=== PATIENT | female | born 1980 | race Caucasian/White ===

== ENCOUNTER 2022-03-07 14:59 | Outpatient (CLI) | payer MEDICAID, SELFPAY ==
[2022-03-07 18:03] LABS: Hepatitis B Surface Antigen* Negative (Negative); Hepatitis C Virus Antibody* Negative (Negative)
[2022-03-08 10:33] LABS: Amphetamine Screen Urine Negative (Negative); Barbiturate Screen Urine Negative (Negative); Benzodiazepines Screen Urine Negative (Negative); Cannabinoid Screen Urine Negative (Negative); Cocaine Screen Urine Negative (Negative); Methadone Screen Urine Negative (Negative); Methamphetamines Screen Urine Negative (Negative); Opiate Screen Urine Negative (Negative); Oxycodone Screen Urine Negative (Negative); Phencyclidine Screen Urine Negative (Negative); Tricyclic Antidepressant Urine Negative (Negative)
[2022-03-08 14:41] LABS: HIV 1/2/P24 Combo Screen* Negative (Negative)
[2022-03-09 13:53] LABS: Rapid Plasma Reagin (RPR) Non Reactive (Non Reactive)
[2022-03-10 02:34] LABS: Rubella Antibody IgG 29.9 IU/mL
== END 2022-03-07 15:00 | disposition home or self-care (01) ==
PROVIDERS: Visit Provider Advanced Practice Midwife
DX: Z34.81 Encounter for supervision of other normal pregnancy, first trimester (principal); Z3A.10 10 weeks gestation of pregnancy
CPT/HCPCS: 76817; 80306; 86592; 86703; 86762; 86787; 86803; 86850; 86900; 86901; 87086; 87340

== ENCOUNTER 2022-04-23 10:23 | Outpatient (CLI) | payer MEDICAID, SELFPAY ==
[2022-04-23 11:52] LABS: Amphetamine Screen Urine Negative (Negative); Barbiturate Screen Urine Negative (Negative); Benzodiazepines Screen Urine Negative (Negative); Cannabinoid Screen Urine Negative (Negative); Cocaine Screen Urine Negative (Negative); Methadone Screen Urine Negative (Negative); Methamphetamines Screen Urine Negative (Negative); Opiate Screen Urine Negative (Negative); Oxycodone Screen Urine Negative (Negative); Phencyclidine Screen Urine Negative (Negative); Tricyclic Antidepressant Urine Negative (Negative)
[2022-04-25 08:04] LABS: Dating Ultrasound; Family Hx Neural Tube Defect No; Insulin Req Maternal Diabetes No; Maternal Age At Delivery 40.3 yr; Maternal Race Nonblack; Maternal Screen Interpretation Screen Neg; MoM for AFP 0.84; Number of Fetuses Singleton; Patient's AFP 30 ng/mL; Smoking No
== END 2022-04-23 10:24 | disposition home or self-care (01) ==
LOC: NFLDREF 10:28
PROVIDERS: Advanced Practice Midwife; Visit Provider Advanced Practice Midwife
DX: O09.522 Supervision of elderly multigravida, second trimester (principal); F12.90 Cannabis use, unspecified, uncomplicated; Z3A.16 16 weeks gestation of pregnancy
CPT/HCPCS: 80306; 81420; 81511

== ENCOUNTER 2022-06-06 12:33 | Outpatient (CLI) | payer MEDICAID, SELFPAY | END 2022-06-06 12:34 | disposition home or self-care (01) | LOC: US 12:35 | PROVIDERS: Visit Provider Pediatrics Neonatal-Perinatal Medicine | DX: O09.522 Supervision of elderly multigravida, second trimester (principal); Z3A.22 22 weeks gestation of pregnancy | CPT/HCPCS: 76811 ==

== ENCOUNTER 2022-07-18 11:24 | Outpatient (CLI) | payer MEDICAID, SELFPAY | END 2022-07-18 11:25 | disposition home or self-care (01) | LOC: NFLDREF 11:27 | PROVIDERS: Visit Provider Advanced Practice Midwife | DX: O09.523 Supervision of elderly multigravida, third trimester (principal); Z3A.28 28 weeks gestation of pregnancy | CPT/HCPCS: 85461; 86592; 86850; J2791 ==

== ENCOUNTER 2022-08-13 14:04 | Outpatient (CLI) | payer MEDICAID, SELFPAY ==
--- NOTE | 2022-08-13 14:00 | CRLHL7_ITS ---
For Patients: As a result of the Century Cures Act, medical imaging exams and procedure reports are released immediately into your electronic medical record. You may view this report before your referring provider. If you have questions, please contact your health care provider. INDICATION: Advanced maternal age, profile views, check growth. COMPARISON: 06/06/2022. TECHNIQUE: : Transabdominal OB ultrasound was performed. FINDINGS: Cervix: Not visualized. position: Vertex. Amniotic fluid: 4.6 cm SDP. Placenta: Anterior. heart rate: 145 bpm. Biometry: BPD: 8.1 cm, 23 w, 3 d, 61%. HC: 30.4 cm, 33 w, 5 d, 69%. AC: 28.5 cm, 32 w, 4 d, 73%. FL: 5.8 cm, 30 w, 5 d, 14%. FL/AC ratio: 20.6%. HC/AC ratio: 1.06. EFW: 1905 g, 4 lbs, 3 oz. age by this US: 32 w, 3 d. RODNEY by this US: 10/05/2022. Percentile by RODNEY: 52%. The nasal bone is visualized and within normal limits. IMPRESSION: 1. Single live intrauterine gestation at 32 weeks 3 days, RODNEY of 10/05/2022. Estimated weight is 1905 grams which lies at the 52 percentile. 2. Nasal bone/ profile is within normal limits. Dictated by Rachael Carter MD @ 08/13/2022 4:17:25 PM (Electronically Signed)
== END 2022-08-13 14:05 | disposition home or self-care (01) ==
LOC: US 14:05
PROVIDERS: Visit Provider Advanced Practice Midwife
DX: O09.523 Supervision of elderly multigravida, third trimester (principal); Z3A.31 31 weeks gestation of pregnancy
CPT/HCPCS: 76816

== ENCOUNTER 2022-09-13 15:34 | Outpatient (CLI) | payer MEDICAID, SELFPAY ==
[2022-09-14 11:50] LABS: Strep B DNA Probe NEGATIVE (Negative)
[2022-09-14 12:16] LABS: Strep B Pen/Amox Allergy No
== END 2022-09-13 15:35 | disposition home or self-care (01) ==
LOC: NFLDREF 15:34
PROVIDERS: Visit Provider Advanced Practice Midwife
DX: Z34.90 Encounter for supervision of normal pregnancy, unspecified, unspecified trimester (principal)
CPT/HCPCS: 87081; 87653

== ENCOUNTER 2022-09-20 13:49 | Outpatient (CLI) | payer MEDICAID, SELFPAY ==
--- NOTE | 2022-09-20 14:00 | CRLHL7_ITS ---
For Patients: As a result of the Century Cures Act, medical imaging exams and procedure reports are released immediately into your electronic medical record. You may view this report before your referring provider. If you have questions, please contact your health care provider. INDICATION: Measuring small for dates TECHNIQUE: Real time romano scale imaging of the fetus was performed. COMPARISON: 08/13/2022 FINDINGS: Sonographic imaging demonstrates a single living intrauterine gestation. Fetus demonstrates a regular cardiac rate of 133 beats per minute. Fetus has a vertex position. The placenta lies anteriorly. Amniotic fluid volume appears normal and there is a single deepest pocket of 5.5 cm. The estimated weight is 2812gm which lies at the 26th %. On the prior OB ultrasound dated 08/13/2022 the estimated weight was at the 52nd percentile. BPD 65th percentile. HC 30th percentile. AC 47th percentile. FL less than 3rd percentile. The fetus was active. Absent breathing movements. There was normal flexion and extension of the trunk and extremities. IMPRESSION: Biophysical profile 10/25. Sonographic gestational age 36 weeks 2 days and sonographic due date 10/16/2022. Sonographic age 6 days behind the clinical age. Estimated weight 26th percentile. Abdominal circumference 47th percentile. Dictated by Byron Carey MD @ 09/21/2022 10:20:11 AM (Electronically Signed)
== END 2022-09-20 13:50 | disposition home or self-care (01) ==
PROVIDERS: Visit Provider Advanced Practice Midwife
DX: O36.5930 Maternal care for other known or suspected poor fetal growth, third trimester, not applicable or unspecified (principal); Z3A.36 36 weeks gestation of pregnancy
CPT/HCPCS: 76816; 76819

== ENCOUNTER 2022-10-01 15:30 | Outpatient (RCR) | payer MEDICAID, SELFPAY ==
--- NOTE | 2022-09-10 17:22 | PT.OPEX ---
[place] Outpatient Eval PT [facility] Outpatient Eval Start: 09/07/22 12:31 Freq: Status: Active Protocol: Document 09/10/22 08:00 DIANE (Rec: 09/10/22 08:01 DIANE [id number]) E-signed By Nona Birmingham PT Physical Therapy Outpatient Evaluation Insurance Information Recert Due Date 11/09/22 Insurance Name Medicaid,[employer] Medical Diagnosis Supervision of other normal (RODNEY: 10-10-22) - Z34 .82 Treating Diagnosis lower abdominal pain (R10.30) postural changes mild taty (N39.3) lack of muscle coordination ( R27.8) -- PFM guarding Referring MD Bri Rodriguez,ALMITA Subjective Subjective Cora presents with orders for supervision of other normal . She is current 34 weeks with her second child. Pt had significant tearing during her last delivery. Had issues with stitches not dissolving and had to have them removed. She is concerned of tearing again. Overall her bladder function is good. Mild TATY symptoms with activity. Bowel function is fair. Only defecates approx 3 times a week which is normal for her. Reports issues of a possible rectal prolapse that occurred during her 1st . Was constipated and had to bear down to defecate. She has been trying hard not to push during this . Does have some pain with sex during vaginal penetration. Can be positionally dependent. Pt reported she also had lower abdominal pain with movement ( ie twisting). Has been limiting her ability to walk and with bed mobility. Goals for therapy include pelvic floor conditioning for childbirth and learning ways to reduce possible tearing. Date of Last Physician Visit 07/18/22 Occupation not currently working Precautions Treatment Precautions/Contraindications 3rd trimester Assessment Assessment/Impression 42 yo client presents with concerns with tearing during her labor. Pt has history of tearing and difficulty healing due to inability of stitches to dissolve. Did assess abdominal area - Doming is visible with CHAITANYA testing prox to umbilicus - Separation of rectus is approx 2.25 fingers width with soft end feel noted . Along the rest of the linea alba: 2 fingers width or less . Did perform a round lig release B with a cessation of her abdominal pain post treatment. Did work with pt on PFM downtraining to help prepare for delivery with good response. Pt is appropriate for further skilled PT services including use of therapeutic exercise, therapeutic activities, neuromuscular re-ed, manual therapy, and self cares for symptom reduction and to prepare for delivery. Plan of Care Rehabilitation Potential Good Physical Therapy Goals Short term goals to be achieved in 4-8 weeks. 1. Pt will report a reduction in her daily abdominal pain to a 2/10 or less, 5 out of 7 days. 2. Pt will be compliant and able to demonstrate proper techniques to help reduce PFM tone 3. Pt will be able to demonstrate correct body mechanics with lifting/ carrying and with transfers to help better manage IAP. 4. Pt will be independent with home program for symptom reduction and for prep for delivery. Coordination/Communication With Referral Source Treatment Plan/Direct Interventions Joint Mobilization,Manual Therapy,Neuromuscular Re-ed, Self-Care/Home Management, Therapeutic Activities, Therapeutic Exercises Frequency/Duration 1 time a week for up to 8 visits Patient Will Be Discharged From Therapy Completion of LTG(s),Skills Plateau,Independent w/HEP, Independently Progressing Evaluation Billing Untimed Code Treatment Minutes 35 Complexity Moderate Certification Information Initial Certification Date 09/10/22 Ending Certification Date 11/09/22 Provider Signature Shows Agreement With POC & Medical Necessity Physician Signature & Date Requested Please Sign/Date Here Physician Comment/Change : Physician NPI Number #
== END 2022-12-28 10:00 | disposition home or self-care (01) ==
PROVIDERS: Visit Provider Advanced Practice Midwife
DX: O34.43 Maternal care for other abnormalities of cervix, third trimester (principal); Z3A.28 28 weeks gestation of pregnancy; Z51.89 Encounter for other specified aftercare
CPT/HCPCS: 97110; 97140; 97162; 97535

== ENCOUNTER 2024-06-30 15:33 | Outpatient (CLI) | payer MEDICAID, SELFPAY | END 2024-06-30 15:34 | disposition home or self-care (01) | PROVIDERS: PCP Family Medicine; Visit Provider Family Medicine | DX: F33.1 Major depressive disorder, recurrent, moderate (principal); R53.83 Other fatigue; Z13.6 Encounter for screening for cardiovascular disorders | CPT/HCPCS: 80053; 80061; 84443 ==

== ENCOUNTER 2024-08-18 10:29 | Outpatient (CLI) | payer MEDICAID, SELFPAY ==
[2024-08-21 08:27] LABS: HPV Source Cervical/Vag; HPV, High Risk by TMA Not Detected
== END 2024-08-18 10:30 | disposition home or self-care (01) ==
PROVIDERS: PCP Family Medicine; Visit Provider Family Medicine
DX: Z12.4 Encounter for screening for malignant neoplasm of cervix (principal); Z11.51 Encounter for screening for human papillomavirus (HPV)
CPT/HCPCS: 87624; 87625; 88141; 88142

== ENCOUNTER 2025-04-01 09:45 | Outpatient (RCR) | payer MEDICAID, SELFPAY ==
--- NOTE | 2024-12-16 15:37 | OT.OPOE ---
OT Outpatient Ortho Eval OT Outpatient Ortho Eval* Start: 12/16/24 14:40 Freq: Status: Active Protocol: Document 12/16/24 14:40 CSS (Rec: 12/16/24 15:36 CSS [id number]) E-signed By Larissa Spring OTR/L OT OP Ortho Eval Details Complexity Complexity Low Insurance Information Insurance [employer] Information Outpatient History/Precautions Current Condition/Medical Diagnosis Referring Provider Dr. 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 Pt notes she has been getting wrist braces and wears them at work; she states wrist braces have been helping. Pt got wrist braces approx 1 month ago. Pt notes numbness and tingling in B hands specifically 1-3 digits. Pt notes she is R hand dominant. Pt notes she has numbness and tingling throughout whole body specifically when she looks down. She has had prior neck injuries. Pt notes minimal pain in B hands and some achiness. Pt notes weakness in hands. Pt reports she is not dropping items. pt notes tenderness on L 4th and 5th MCP joint. Pain Assessment Pain Pain No Range of Motion and Strength Shoulder Range of Motion and Strength Shoulder Range of B shoulders: AROM WNL Motion and Strength Elbow/Forearm Range of Motion and Strength Elbow/Forearm Range B elbows: AROM WNL of Motion and Strength Wrist Range of Motion and Strength Wrist Range of B wrists: AROM WNL Motion and Strength Hand/Finger/Thumb Range of Motion and Strength Hand/Finger/Thumb B hands: AROM WNL Range of Motion and Strength Hand Pinch/Checkerer Hand Strength Hand Pinch/Checkerer Hand Strength Hand Pinch/Checkerer Hand Left Hand,Right Hand Strength Left Hand Checkerer Hand Strength 68 Position 1 in Elbow Flexion (lbs) Lateral Pinch 13 Strength (lbs) Three Point Pinch ( 14 lbs) Right Hand Checkerer Hand Strength 76 Position 1 in Elbow Flexion (lbs) Lateral Pinch 16 Strength (lbs) Three Point Pinch ( 14 lbs) OT Objective Data Hand Hand Dominance Right Sensation Sensation Assessment numbness in pads of digits, specifically 1-3 Summary Comments Upper Extremity Special Tests Median Nerve-Carpal Tunnel Wrist Phalen Test Positive Left,Positive Right Wrist Tinel Test Negative Right,Positive Left OT Problems Problems Problems Decreased Strength,Pain,Sensory Sensitivity Problems Comments pt notes it is most affecting at night time. work duties Other Problems Opening Containers,Sleeping Patient Potential Good Assessment Assessment Assessment Pt is a 44 year old female who is referred to OT for bilateral carpal tunnel syndrome. Pt notes symptoms occurred when starting her job which is very physically demanding- she notes increased lifting and carrying of items. Pt currently having B numbness/tingling, pain, and weakness impacting her ADLs/IADLs. Pt would benefit from skilled OT for work positioning, stretches, edema management, strengthening, and nerve stretches to reduce symptoms and maximize indep. Occupational Therapy Treatment Plan - OP Potential Rehabilitation Excellent Potential Barriers Barriers to goal ongoing work duties attainment Set Goals Goals Set with Yes Patient Goals Goals Goals to be met by 02/24/2025: 1) Pt will note no numbness/tingling in R hand in 2 consistent sessions or more. 2) Pt will note no numbness/tingling in L hand in 2 consistent sessions or more. 3) Pt will note 0/10 pain w/ work duties in 2 consistent sessions. Treatment Plan Treatment Plan Evaluation,Edema Control,Iontophoresis with Dexamethasone Sodium Phosphate 1 mL (4mg per mL),Joint Mobilization,Manual Therapy,Splinting,Ultrasound, Therapeutic Exercise,Therapeutic Activities,Self Care/ Home Management,Education Expected Frequency 1-2x Week Expected Duration 8-10 Weeks Home Program Home Program Home Program Initiated Home Program compression gloves, contrast bath, wrist splints at Specifics night, and wrist stretches Certification Certification Statement I Certify That: Therapy Services Provided,Therapy Plan Established, Therapy Plan Reviewed Certification Information Clinic ID # [id number] Initial 12/16/24 Certification Date Recertification Due 02/24/25 Date Provider Signature Yes Required Provider Signature POC & Medical Necessity Shows Agreement With Physician NPI Number Write NPI# Here Physician Comment/ Comment or Changes Change Physician Signature Please Sign/Date Here & Date Requested
--- NOTE | 2025-03-11 14:01 | OT.OPODN ---
OT Outpatient Ortho Daily Note OT Outpatient Ortho Daily Note* Start: 12/16/24 14:40 Freq: Status: Active Protocol: Document 03/11/25 13:05 [facility] (Rec: 03/11/25 13:59 [facility] [id number]) E-signed By Larissa Spring OTR/L Type of Note Type of Note Type of Note Daily Note,Recert/Progress Note Visit Number 7 Insurance Information Insurance [employer] Information Outpatient History/Precautions Current Condition/Medical Diagnosis Referring Provider Dr. Saldivar Medical Diagnoses G56.03- carpal tunnel syndrome, bilateral upper extremities Treatment Diagnosis R20.2- paresthesia of skin (bilateral) R53.1- weakness (bilateral) Medical/Functional History Prior Level of indep with ADLs/IADLs Function/Mobility Social History Employment Status Emergency Management Consultant Employed Critical Job Demands Pull,Lift,Overhead Reach Ortho Subjective Subjective Subjective Pt notes no numbness in L hand but continual numbness in R hand. Pt notes L elbow pain (extensors); Pt reports wearing braces majority of the time. She reports she overuses L arm and feels this is why pain is starting in LUE in lateral epicondyle. 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 Pt Comments now has pain in dorsal forearm and lateral epicondylitis. OT educates to ice forearm, complete cross friction massage, and avoid over use of extensors . Pt is encouraged to go to ortho for R carpal tunnel symptoms. OT will continue to see pt for L lateral epicondylitis symptoms at this time as they are new and most likely from overuse of LUE due to carpal tunnel symptoms in RUE. Manual Therapy Manual Therapy 15 Minutes (minutes) Manual Therapy Soft tissue mobilization completed on pt's L dorsal Comments forearms to control edema, increase ROM, and help decrease pain to promote functional use in BUE. Ultrasound Ultrasound Minutes ( 8 minutes) Ultrasound Location L wrist- 5 min & Joint Position R wrist- 5 min Ultrasound Frequency 1 MHz Pulsed & Mode Intensity (w/cm2) 1.5 Ultrasound Comments Precautions and contraindications of US completed. Pt in agreement to US. Skin assessed before and after US treatment- no redness or open skin. Ultrasound completed to reduce edema and increase circulation to promote healing and functional use of UE. Total Occupational Therapy Time Occupational Therapy 38 Minutes Home Program Home Program Home Program Initiated,Compliant Home Program compression gloves, contrast bath, wrist splints at Specifics night, and wrist stretches, counter force band, cross friction mobilization, median nerve glides, wrist immobilizers all the time Range of Motion and Strength Shoulder Range of Motion and Strength Shoulder Range of B shoulders: AROM WNL Motion and Strength Elbow/Forearm Range of Motion and Strength Elbow/Forearm Range B elbows: AROM WNL of Motion and Strength Wrist Range of Motion and Strength Wrist Range of B wrists: AROM WNL Motion and Strength Hand/Finger/Thumb Range of Motion and Strength Hand/Finger/Thumb B hands: AROM WNL Range of Motion and Strength Hand Pinch/Online Journalist Strength Hand Pinch/Online Journalist Strength Hand Pinch/Online Journalist Left Hand,Right Hand Strength Left Hand Online Journalist Strength 68 Position 1 in Elbow Flexion (lbs) Lateral Pinch 13 Strength (lbs) Three Point Pinch ( 14 lbs) Right Hand Online Journalist Strength 74 Position 1 in Elbow Flexion (lbs) Lateral Pinch 16 Strength (lbs) Three Point Pinch ( 14 lbs) OT Objective Data Hand Hand Dominance Right Sensation Sensation Assessment numbness in pads of digits, specifically 1-3 Summary Comments Upper Extremity Special Tests Median Nerve-Carpal Tunnel Wrist Phalen Test Positive Left,Positive Right Wrist Tinel Test Negative Right,Positive Left OT Problems Problems Problems Decreased Strength,Pain,Sensory Sensitivity Problems Comments pt notes it is most affecting at night time. work duties Other Problems Opening Containers,Sleeping Patient Potential Excellent Assessment Assessment Assessment Pt is a 44 year old female who is referred to OT for bilateral carpal tunnel syndrome. Pt notes symptoms occurred when starting her job which is very physically demanding- she notes increased lifting and carrying of items. Pt currently having B numbness/tingling, pain, and weakness impacting her ADLs/IADLs. Pt would benefit from skilled OT for work positioning, stretches, edema management, strengthening, and nerve stretches to reduce symptoms and maximize indep. Pt progresses with L hand carpal tunnel symptoms however has ongoing numbness and pain in R hand which is impacting her indep with ADLs/IADLs. Pt notes new L elbow pain due to overuse since she is limited with RUE . OT to work w/ pt for a few more sessions to educate on management for possible tennis elbow in E. Provider messaged and requested ortho referral due to ongoing carpal tunnel symptoms in [facility]. Occupational Therapy Treatment Plan - OP Potential Rehabilitation Excellent Potential Barriers Barriers to goal ongoing work duties attainment Set Goals Goals Set with Yes Patient Goals Goals Goals to be met by 04/26/2025: 1) Pt will note no numbness/tingling in R hand in 2 consistent sessions or more. - d/c goal; to be addressed with ortho 2) Pt will note no numbness/tingling in L hand in 2 consistent sessions or more. - goal met 3) Pt will note 0/10 pain w/ work duties in 2 consistent sessions. - goal in progress NEW GOAL: 4) Pt will note no pain in L elbow with activity. Treatment Plan Treatment Plan Evaluation,Edema Control,Iontophoresis with Dexamethasone Sodium Phosphate 1 mL (4mg per mL),Joint Mobilization,Manual Therapy,Splinting,Ultrasound, Therapeutic Exercise,Therapeutic Activities,Self Care/ Home Management,Education Expected Frequency 1-2x Week Expected Duration 8-10 Weeks Occupational Therapy Billing Units Treatment Minutes Untimed Treatment 0 Minutes Timed Treatment 38 Minutes Total Treatment 38 Minutes Billing Units Manual Therapy 1 Therapeutic 1 Activities Ultrasound 1 Certification Statement Certification Statement I Certify That: Therapy Services Provided,Therapy Plan Established, Therapy Plan Reviewed Recertification Information Recertification Information Initial 12/16/24 Certification Date Recertification 03/11/25 Start Date Recertification Due 04/26/25 Date Reasons to Continue new pain in L elbow from overuse of LUE due to carpal Skilled Therapy tunnel in [facility] Rehabilitation fair Potential Click To Default ' Per treatment plan Per treatment plan' Continued Plan of Per treatment plan Care and Interventions Provider Signature Yes Required Provider Signature POC & Medical Necessity Shows Agreement With Physician NPI Number Write NPI# Here Physician Comment/ Comment or Changes Change Physician Signature Please Sign/Date Here & Date Requested
== END 2025-04-01 10:58 | disposition home or self-care (01) ==
PROVIDERS: PCP Family Medicine; Visit Provider Family Medicine
DX: G56.03 Carpal tunnel syndrome, bilateral upper limbs (principal); R20.2 Paresthesia of skin; Z51.89 Encounter for other specified aftercare
CPT/HCPCS: 97033; 97035; 97110; 97140; 97165; 97530; 97535; X5282